=== PATIENT | male | born 1940 | race Caucasian/White ===

== ENCOUNTER 2019-03-27 12:48 | Emergency (ER) | payer MEDICARE, OTHER ==
[2019-03-27] MEDS ORDERED: FLOMAX0.4 MG PO (13:04)
[2019-03-27] MEDS ORDERED: NUPLAZID34 MG PO (13:04)
[2019-03-27] MEDS ORDERED: ASPIR LOW81 MG PO (13:04)
[2019-03-27] MEDS ORDERED: CARBIDOPA LEVO PO (13:05)
[2019-03-27] MEDS ORDERED: COREG 25MG25 MG/TAB PO (13:05)
[2019-03-27] MEDS ORDERED: ISOSORBIDE30 MG PO (13:06)
[2019-03-27] MEDS ORDERED: JARDIANCE10 MG PO (13:06)
[2019-03-27] MEDS ORDERED: ATORVASTATIN CA10 MG PO (13:06)
[2019-03-27] MEDS ORDERED: PROSCAR PO (13:07)
[2019-03-27] MEDS ORDERED: XANAX 1MG1 MG PO (13:07)
[2019-03-27] MEDS ORDERED: NEXIUM 40MG40 MG (13:07)
[2019-03-27] MEDS ORDERED: BIOFLEX TABLET1 EACH PO (13:29)
[2019-03-27] MEDS ORDERED: MULTIPLE VITAMI1 TA1 PO (13:29)
[2019-03-27 13:48] LABS: BASO # 0.1 (0.02-0.10); EOS # 0.4 (0.04-0.40); HEMATOCRIT 43.6 % (42.0-52.0); HEMOGLOBIN 13.8 g/dL (13.5-18.0); LYMPH# 1.4 (1.50-4.00); MEAN CELL VOLUME 97 fl (78-100); MEAN CORPUSCULAR HEMOGLOBIN 31 pg (27-31); MEAN CORPUSCULAR HGB CONC 32 g/dL (33-37); MEAN PLATELET VOLUME 10.9 fl (7.4-10.4); MONO # 0.8 (0.20-0.80); NEU # 4.7 (1.40-6.50); PLATELET COUNT 255 K/mm3 (130-400); RED BLOOD COUNT 4.49 M/mm3 (4.20-5.60); RED CELL DISTRIBUTION WIDTH 13.3 % (11.5-14.5); WHITE BLOOD COUNT 7.4 K/mm3 (4.8-10.8)
[2019-03-27 13:56] LABS: POTASSIUM 4.5 mmol/L (3.5-5.1)
[2019-03-27 13:57] LABS: CALCIUM 9.7 mg/dL (8.3-10.5)
[2019-03-27 14:00] LABS: EOS % 5.7 % (0.0-4.0); TOTAL BILIRUBIN 0.2 mg/dL (0.2-1.2)
[2019-03-27 14:15] LABS: URINE APPEARANCE CLOUDY; URINE BILIRUBIN NEGATIVE (NEGATIVE); URINE BLOOD 50 ery/uL (NEGATIVE); URINE COLOR LT YELLOW; URINE KETONE 1+ (NEGATIVE); URINE LEUKOCYTE ESTERASE 1+ (NEGATIVE); URINE NITRATE NEGATIVE (NEGATIVE); URINE PROTEIN(semi-quant) TRACE mg/dL (NEGATIVE); URINE UROBILINOGEN NORMAL (NORMAL)
[2019-03-27 14:16] LABS: URINE WBC 16-30 /hpf (0-3)
[2019-03-27] MEDS ORDERED: SEPTRA DS 8001 TAB PO (14:44)
[2019-03-27 14:53] VITALS: BP 122/63
== END 2019-03-27 14:51 | disposition home or self-care (01) ==
LOC: ED 12:48
PROVIDERS: Family Medicine
DX: N35.919 Unspecified urethral stricture, male, unspecified site (principal); Q54.9 Hypospadias, unspecified; E11.9 Type 2 diabetes mellitus without complications; G20 Parkinson's disease; Z79.82 Long term (current) use of aspirin

== ENCOUNTER 2021-05-18 20:19 | Observation (INO) | payer MEDICARE, OTHER ==
[~2021-05-18] VITALS: Ht 177.8 cm; Wt 65.2 kg
[~2021-05-18 20:19] MED LIST: ASPIR LOW81 MG PO; ATORVASTATIN CA10 MG PO; BIOFLEX TABLET1 EACH PO; CARBIDOPA LEVO PO; COREG 25MG25 MG/TAB PO; FLOMAX0.4 MG PO; ISOSORBIDE30 MG PO; JARDIANCE10 MG PO; MULTIPLE VITAMI1 TA1 PO; NEXIUM 40MG40 MG; NUPLAZID34 MG PO; PROSCAR PO; SEPTRA DS 8001 TAB PO; XANAX 1MG1 MG PO
[2021-05-18 21:28] LABS: BASO # 0.03 K/mm3 (0.02-0.10); EOS # 0.08 K/mm3 (0.04-0.40); EOS % 0.7 % (0.0-4.0); HEMATOCRIT 31.2 % (42.0-52.0); LYMPH# 1.06 K/mm3 (1.50-4.00); MEAN CELL VOLUME 99 fl (78-100); MEAN CORPUSCULAR HEMOGLOBIN 32 pg (27-31); MEAN CORPUSCULAR HGB CONC 32 g/dL (33-37); MEAN PLATELET VOLUME 9.7 fl (7.4-10.4); MONO # 0.56 K/mm3 (0.20-0.80); NEU # 9.31 K/mm3 (1.40-6.50); PLATELET COUNT 270 K/mm3 (130-400); RED BLOOD COUNT 3.16 M/mm3 (4.20-5.60); WHITE BLOOD COUNT 11.1 K/mm3 (4.8-10.8)
[2021-05-18 21:35] LABS: ALBUMIN 2.5 g/dL (3.4-4.8)
[2021-05-18 21:36] LABS: POTASSIUM 4.9 mmol/L (3.5-5.1)
[2021-05-18 21:37] LABS: CALCIUM 8.3 mg/dL (8.3-10.5)
[2021-05-18 21:38] LABS: TOTAL PROTEIN 6.3 g/dL (6.2-8.1)
[2021-05-18 22:52] LABS: PH-URINE 8.5 (5.0 - 8.0); URINE APPEARANCE CLOUDY; URINE BILIRUBIN NEGATIVE (NEGATIVE); URINE BLOOD TRACE (NEGATIVE); URINE COLOR DK YELLOW; URINE GLUCOSE NEGATIVE (NEGATIVE); URINE KETONE 1+ (NEGATIVE); URINE LEUKOCYTE ESTERASE 2+ (NEGATIVE); URINE NITRATE POSITIVE (NEGATIVE); URINE PROTEIN(semi-quant) 1+ (NEGATIVE); URINE UROBILINOGEN NORMAL (NORMAL); URINE WBC >50 /hpf (0-3)
[2021-05-19 01:12] VITALS: BP 114/70
[2021-05-19] MEDS ORDERED: CARBIDOPA AND L1 OD1 PO (01:45)
[2021-05-19] MEDS ORDERED: WELLBUTRIN PO (01:45)
[2021-05-19] MEDS ORDERED: DIABETA 5MG5 MG/TAB PO (01:46)
[2021-05-19] MEDS ORDERED: LATANOPROST 0.7.5 ML OP (01:46)
[2021-05-19] MEDS ORDERED: ELIQUIS5 MG PO (01:46)
[2021-05-19] MEDS ORDERED: METFORMIN HYD1000 MG PO (01:47)
[2021-05-19] MEDS ORDERED: MELATONIN10 MG PO (01:47)
[2021-05-19] MEDS ORDERED: IMODIUM A-D2 M3 PO (01:48)
[2021-05-19] MEDS ORDERED: ACETAMINOPHEN325 M1 PO (01:48)
[2021-05-19] MEDS ORDERED: ONDANSETRON HYDR4 MG PO (01:49)
[2021-05-19] MEDS ORDERED: SENEXON-S 50-81 EACH PO (01:49)
[2021-05-19 05:53] VITALS: BP 121/61
[2021-05-19 07:54] LABS: BASO # 0.04 K/mm3 (0.02-0.10); EOS # 0.08 K/mm3 (0.04-0.40); EOS % 0.8 % (0.0-4.0); HEMATOCRIT 31.4 % (42.0-52.0); HEMOGLOBIN 9.8 g/dL (13.5-18.0); LYMPH# 0.85 K/mm3 (1.50-4.00); MEAN CELL VOLUME 101 fl (78-100); MEAN CORPUSCULAR HEMOGLOBIN 32 pg (27-31); MEAN CORPUSCULAR HGB CONC 31 g/dL (33-37); MONO # 0.52 K/mm3 (0.20-0.80); NEU # 8.76 K/mm3 (1.40-6.50); PLATELET COUNT 249 K/mm3 (130-400); RED BLOOD COUNT 3.11 M/mm3 (4.20-5.60); RED CELL DISTRIBUTION WIDTH 14.1 % (11.5-14.5); WHITE BLOOD COUNT 10.3 K/mm3 (4.8-10.8)
[2021-05-19 08:02] LABS: ALBUMIN 2.4 g/dL (3.4-4.8); POTASSIUM 4.7 mmol/L (3.5-5.1)
[2021-05-19] MEDS ORDERED: BACTRIM DS TAB1 EACH PO (08:51)
[2021-05-19 10:50] VITALS: BP 105/62
== END 2021-05-19 11:20 | disposition home or self-care (01) ==
LOC: ED 20:19 → MED/SURG 23:47
PROVIDERS: ADMIT Family Medicine
DX: M54.6 Pain in thoracic spine (principal); N17.9 Acute kidney failure, unspecified; N39.0 Urinary tract infection, site not specified; D64.9 Anemia, unspecified; D72.829 Elevated white blood cell count, unspecified; E78.5 Hyperlipidemia, unspecified; N40.0 Benign prostatic hyperplasia without lower urinary tract symptoms; E11.39 Type 2 diabetes mellitus with other diabetic ophthalmic complication; H42 Glaucoma in diseases classified elsewhere; G20 Parkinson's disease; F41.9 Anxiety disorder, unspecified; K21.9 Gastro-esophageal reflux disease without esophagitis; I48.91 Unspecified atrial fibrillation; I25.10 Atherosclerotic heart disease of native coronary artery without angina pectoris; W19.XXXA Unspecified fall, initial encounter; Z79.899 Other long term (current) drug therapy; Z79.84 Long term (current) use of oral hypoglycemic drugs; Z79.82 Long term (current) use of aspirin
CPT/HCPCS: G0378; J0696; J1650; J2405; J7030